=== PATIENT | male | born 1950 | race Caucasian/White ===

== ENCOUNTER 2018-05-01 14:30 | Outpatient (RCR) | payer BC, SELFPAY ==
--- NOTE | 2018-04-17 14:00 | PTTR_ITS ---
DATE: 04/17/18 SUBJECTIVE: Damion states that he seems to be doing a little bit better. He is noticing that his symptoms have changed somewhat with pain in his sit bone, and in lateral knee. He has not done any running, he is afraid this will exacerbate his symptoms. He has considered dry needling options and would like to proceed with that today. Manual therapy: ([id number]). Patient received manual mobilization of the L hip , he continues to demonstrate full PROM although with end range pain with IR. This is alleviated with inferior hip joint mobilizations, performed at end range of IR at grade 3. He also received manual stretching to the piriformis and gluteals as well as manual hamstring stretching. This is followed by cross friction massage to the hamstring attachment with good tolerance. He then received dry needling for SPRINGER services as follows: PA's L1-5 bilaterally, EDWARDS's, L cluneals, inferior gluteal and ITB, SA proximal hamstring tendon. Signed consent form can be found in scanned documents. Direct treatment time: 30 mins Total treatment time: 30 mins SS/dl
--- NOTE | 2018-04-25 15:30 | PTTR_ITS ---
DATE: 04/25/18 SUBJECTIVE: Nelson states that he felt okay after last session. He did not have any adverse affects in the dry needling, although unsure if he had any significant improvement either. He has begun biking quite regularly going about 1/2 mile to a mile stating that he does get some distal ITB pain with completion. Manual therapy: ([id number]). Patient continues to be point tender at the proximal hamstring attachment. He received cross friction massage here as well as manual stretching of the hamstrings, piriformis and ITB. He has mild tenderness to palpation through the distal ITB, received patella mobilizations with medial patella glides and joint mobilizations to the L hip at grade 3, performing mid range of flexion with both inferior and lateral joint mobs. The patient then received integrated dry needling for koo services as follows: PAs L1-5 bilaterally, HAs, L cluneals, inferior gluteal, ITB, saphenous, surreal and fibular, SA to the proximal hamstring tendon. Direct treatment time: 35 mins Total treatment time: 35 mins SS/dl
--- NOTE | 2018-05-01 15:17 | PTTR_ITS ---
DATE: 05/01/18 SUBJECTIVE: Nelson states that his ITB has been very bothersome. He increased his biking to about 3 miles which included hills. He feels this contributed to his increased symptoms. His HS tendon has been feeling pretty good, which he attributes to doing less of the things that bother it. He admits that he hasn't been terribly compliant with his HEP, stating he doesn't feel fatigued or stressed from the exercises, and subsequently isn't motivated to perform them. OBJECTIVE: Therapeutic procedures ([id number]). * x HEP review: Fully modified program as noted in scanned documents. * x Provided skilled instruction in proper exercise performance: Requires verbal and tactile cues for pelvic positioning during bridging activities. * x Provided skilled manual cues to facilitate proper muscle recruitment and/ or movement pattern: * x Other: Trunk and hip ROM are grossly WNL. Patient demonstrates SLR to 65 degrees. He received desensitization massage throughout the distal ITB with good tolerance, followed by medial patella glides. He also received non- billable dry needling to the left ITB. Direct treatment time: 30 minutes Total treatment time: 35 minutes, for completion of non-billable dry needling
== END 2018-05-05 23:59 | disposition home or self-care (01) ==
LOC: PT 14:30
PROVIDERS: PCP Family Medicine; Referring Provider Family Medicine; Visit Provider Family Medicine
DX: M70.62 Trochanteric bursitis, left hip (principal); M76.32 Iliotibial band syndrome, left leg
CPT/HCPCS: 97110; 97140

== ENCOUNTER 2018-08-07 11:32 | Outpatient (CLI) | payer BC, SELFPAY ==
--- NOTE | 2018-08-07 11:28 | DI.RAD_ITS ---
SYMPTOM/DIAGNOSIS: LT KNEE PAIN LEFT KNEE: Four views. No acute fracture or dislocation is seen. The femoral tibial joint spaces are well maintained. Mild periarticular spurring is seen at the posterior patella. There does appear to be a small suprapatellar joint effusion. The bones are normally mineralized. IMPRESSION: Mild degenerative changes seen at the patellofemoral joint.
== END 2018-08-07 11:52 ==
PROVIDERS: PCP Family Medicine; Visit Provider Physician Assistant
DX: M25.562 Pain in left knee (principal); M17.12 Unilateral primary osteoarthritis, left knee
CPT/HCPCS: 73562

== ENCOUNTER 2018-11-16 19:32 | Outpatient (REF) | payer BC, MEDICARE, SELFPAY ==
[2018-11-16 13:07] LABS: Iron 120 ug/dL (50-175)
[2018-11-16 13:13] LABS: ALT 22 U/L (12-78); AST 28 U/L (15-37); Albumin 4.2 g/dL (3.4-5.0); Alkaline Phosphatase 53 U/L (46-116); Bilirubin, Total 1.1 mg/dL (0.2-1.0); Cholesterol 183 mg/dL (50-200); HDL Cholesterol 36 mg/dL (40-60); LDL CHOLESTEROL 132 mg/dL (<100); TSH 4.16 uIU/mL (0.358-3.74); Total Protein 7.3 g/dL (6.4-8.2); Triglyceride 88 mg/dL (30-150)
[2018-11-16 13:22] LABS: Bilirubin, Direct 0.19 mg/dL (0.00-0.20)
== END 2018-11-16 19:52 ==
LOC: NCHCN 19:32
PROVIDERS: PCP Family Medicine; Visit Provider Family Medicine
DX: E03.9 Hypothyroidism, unspecified (principal); E78.6 Lipoprotein deficiency; E80.7 Disorder of bilirubin metabolism, unspecified
CPT/HCPCS: 80061; 80076; 83721; 85027; 83540; 84436; 84443

== ENCOUNTER 2018-11-17 14:33 | Outpatient (REF) | payer BC, SELFPAY ==
[2018-11-17 20:36] LABS: HCT 39.8 % (40.0-50.0); HGB 13.4 g/dL (13.5-17.5); Mean Corp. HGB Concentration 33.7 g/dL (32.0-36.0); Mean Platelet Volume 9.9 fL (8.0-11.0); Platelet Count 288 x1000/uL (130-400); RBC 4.19 m/cumm (4.50-6.00); RBC Distribution Width 13.4 % (11.8-14.1); White Blood Cell Count 6.78 k/cumm (4.4-10.8)
== END 2018-11-17 14:53 ==
LOC: NCHCN 14:33
PROVIDERS: PCP Family Medicine; Visit Provider Family Medicine
DX: E61.1 Iron deficiency (principal)
CPT/HCPCS: 85027

== ENCOUNTER 2019-01-12 02:22 | Outpatient (CLI) | payer BC, SELFPAY ==
--- NOTE | 2019-01-12 13:44 | DI.MRI_ITS ---
SYMPTOMS/DIAGNOSIS: LEFT KNEE EFFUSION, ILIOTIBIAL BAND SYNDROME, M76.32 LEFT KNEE MRI: MRI examination of the knee was performed according to the usual protocol. There is a moderate-sized knee joint effusion. There is abnormal signal in the lateral femoral condyle and also mildly abnormal signal associated with the femoral component of the lateral patellofemoral joint. There is marked thinning of the articular cartilage of the patellofemoral joint laterally and to a lesser degree medially. There is mild lateral patellar subluxation. Otherwise, extensor mechanism appears intact. Articular cartilage of the tibiofemoral joints appears mildly thinned, both medially and laterally. No cruciate ligament tear seen. No meniscal tear seen. No evidence of collateral ligament injury. CONCLUSION: Degenerative changes, most prominent involving patellofemoral joint, particularly laterally where there is severe articular cartilage loss with associated subchondral bony signal change. No evidence of internal derangement.
== END 2019-01-12 02:42 ==
PROVIDERS: PCP Family Medicine; Visit Provider Student in an Organized Health Care Education/Training Program
DX: M76.32 Iliotibial band syndrome, left leg (principal); M25.462 Effusion, left knee; M17.12 Unilateral primary osteoarthritis, left knee
CPT/HCPCS: 73721

== ENCOUNTER 2019-01-17 09:23 | Outpatient (REF) | payer BC, SELFPAY ==
[2019-01-17 14:39] LABS: TSH (W/Ref FT4) 1.51 uIU/mL (0.358-3.74)
== END 2019-01-17 09:43 ==
LOC: NCHCN 09:23
PROVIDERS: PCP Family Medicine; Visit Provider Family Medicine
DX: E03.9 Hypothyroidism, unspecified (principal)
CPT/HCPCS: 84443

== ENCOUNTER 2020-01-09 02:01 | Outpatient (CLI) | payer BC, SELFPAY ==
[2020-01-09 10:49] LABS: ALT 29 U/L (16-63); AST 24 U/L (15-37); Alkaline Phosphatase 58 U/L (46-116); Bilirubin, Direct 0.18 mg/dL (0.00-0.20); Bilirubin, Total 0.9 mg/dL (0.2-1.0); Lipase 278 U/L (73-393); Total Protein 7.1 g/dL (6.4-8.2)
== END 2020-01-09 02:21 ==
PROVIDERS: PCP Family Medicine; Visit Provider Family Medicine
DX: R10.13 Epigastric pain (principal)
CPT/HCPCS: 36415; 80076; 83690

== ENCOUNTER 2020-01-10 01:52 | Outpatient (CLI) | payer BC, SELFPAY ==
--- NOTE | 2020-01-10 | DI.US_ITS ---
CLINICAL HISTORY: EPIGASTRIC PAIN, R10.13, ? GB DISEASE. TECHNIQUE: Ultrasound abdomen performed using standard protocol. COMPARISON: No exams were available for comparison FINDINGS: LIVER: Normal size. Mildly increased echogenicity.. No focal liver lesions are seen.. GALLBLADDER: No evidence of cholelithiasis. No evidence of wall thickening. No pericholecystic fluid identified. KIDNEYS: Kidneys are symmetric in size. No evidence of renal calculi. No evidence of hydronephrosis. No renal mass identified. Small bilateral renal cysts are noted. BILIARY SYSTEM: No intrahepatic or extrahepatic biliary ductal dilation. FRYE'S SIGN: Negative. PANCREAS: Normal where visualized. SPLEEN: Not enlarged. Scattered calcifications consistent with calcified granulomas. ABDOMINAL AORTA AND IVC: Visualized portions normal caliber. ASCITES: None seen. IMPRESSION: Mild hepatic steatosis. No acute abnormality.. DATA REPOSITORY:
== END 2020-01-10 02:12 ==
PROVIDERS: PCP Family Medicine; Visit Provider Family Medicine
DX: R10.13 Epigastric pain (principal); N28.1 Cyst of kidney, acquired; K76.0 Fatty (change of) liver, not elsewhere classified
CPT/HCPCS: 76700

== ENCOUNTER 2020-02-14 02:33 | Outpatient (CLI) | payer BC, SELFPAY ==
[2020-02-14 08:42] LABS: Abs Immature Grans 0.01 k/cumm (0.0-0.09); Absolute Basophil Count 0.02 k/cumm (0.0-0.2); Absolute Eosinophil Count 0.24 k/cumm (0.0-0.7); Absolute Lymphocyte Count 1.62 k/cumm (1.2-3.4); Absolute Monocyte Count 0.58 k/cumm (0.11-0.7); Absolute Neutrophil Count 2.86 k/cumm (1.2-6.7); Basophils % 0.4; Eosinophils % 4.5; HCT 39.1 % (40.0-50.0); HGB 13.4 g/dL (13.5-17.5); Immature Grans % 0.2 %; Lymphocytes % 30.4; Mean Corp. HGB Concentration 34.3 g/dL (32.0-36.0); Mean Corpuscular Hemoglobin 31.8 pg (27.0-33.0); Mean Corpuscular Volume 92.7 fL (80-95); Mean Platelet Volume 8.9 fL (8.0-11.0); Monocytes % 10.9; Neutrophils % 53.6; Platelet Count 299 x1000/uL (130-400); RBC 4.22 m/cumm (4.50-6.00); White Blood Cell Count 5.33 k/cumm (4.4-10.8)
[2020-02-14 09:23] LABS: Iron 114 ug/dL (65-175); Total Iron Binding Capacity 226 ug/dL (250-450); Transferrin Sat 50 % (20-55)
[2020-02-14 09:34] LABS: ALT 25 U/L (16-63); AST 25 U/L (15-37); Albumin 4.1 g/dL (3.4-5.0); Alkaline Phosphatase 62 U/L (46-116); Anion Gap 6.3 mmol/L (3-11); BUN 19 mg/dL (7-18); Bilirubin, Total 1.1 mg/dL (0.2-1.0); CO2 30.7 mmol/L (21.0-32.0); CREATININE 0.96 mg/dL (0.70-1.30); Calculated LDL 87 mg/dL (<100); Chloride 107 mmol/L (98-107); Cholesterol 136 mg/dL (<200); Ferritin 325 ng/mL (26-388); Glucose 92 mg/dL (74-106); HDL Cholesterol 33 mg/dL (40-60); Potassium 3.7 mmol/L (3.5-5.1); Sodium 144 mmol/L (136-145); Total Protein 7.2 g/dL (6.4-8.2); Triglyceride 84 mg/dL (<150)
[2020-02-15 09:58] LABS: PSA, Screening 0.9 ng/mL (0.0-4.5)
[2020-02-15 10:56] LABS: IgA 219 mg/dL (85-499)
[2020-02-18 13:23] LABS: IgA 219 mg/dL (85-499); Tissue Transglutaminase IgA <1.2 U/mL (<4.0)
[2020-02-18 22:26] LABS: Tissue Transglutaminase Ab IgA <1.2 U/mL; Tissue Transglutaminase Ab IgG 4.9 U/mL
== END 2020-02-14 02:53 ==
PROVIDERS: PCP Family Medicine; Visit Provider Family Medicine
DX: E03.9 Hypothyroidism, unspecified (principal); R10.13 Epigastric pain; E78.6 Lipoprotein deficiency; D50.9 Iron deficiency anemia, unspecified
CPT/HCPCS: 36415; 80053; 80061; 82784; 83516; 84153; 82728; 83540; 83550; 85025

== ENCOUNTER 2020-03-12 13:06 | Outpatient (REF) | payer BC, SELFPAY ==
[2020-03-12 22:07] LABS: TSH (W/Ref FT4) 0.93 uIU/mL (0.36-3.74)
== END 2020-03-12 13:26 ==
LOC: NCHCN 13:06
PROVIDERS: PCP Family Medicine; Visit Provider Family Medicine
DX: E03.9 Hypothyroidism, unspecified (principal)
CPT/HCPCS: 84443

== ENCOUNTER 2020-04-25 00:52 | Outpatient (CLI) | payer BC, SELFPAY | END 2020-04-25 01:12 | PROVIDERS: PCP Family Medicine; Visit Provider Family Medicine | DX: R00.2 Palpitations (principal); R10.13 Epigastric pain | CPT/HCPCS: 93270 ==

== ENCOUNTER 2020-05-09 04:03 | Outpatient (CLI) | payer BC, SELFPAY ==
--- NOTE | 2020-05-09 | DI.US_ITS ---
APPROVED REPORT EXAM: Comprehensive 2D, Doppler, and color-flow Echocardiogram Patient Location: Out-Patient Vibrator Operator: Apurva Shen RDCS (AE) Indications: Palpitations, Epigastric pain Other Information Study Quality: Good Conclusion Normal left ventricular wall thickness and chamber size. Estimated ejection fraction is 55 to 60%. There are no segmental wall motion abnormalities Normal right ventricular size and systolic function The left atrium and right atrium are normal in size Aortic valve is trileaflet and mildly sclerotic with trace regurgitation. No aortic stenosis Normal mitral, tricuspid, and pulmonic valves There is trace mitral regurgitation, trace to mild tricuspid regurgitation Normal estimated right ventricular systolic pressure Mildly dilated ascending aorta measuring 3.77 cm Wall motion Left Ventricle The left ventricle is normal size. The left ventricular systolic function is normal. The left ventric ular ejection fraction is within the normal range. There is normal left ventricular wall thickness. T here is normal LV segmental wall motion. There is no ventricular septal defect visualized. LVEF is 55 -60%. Right Ventricle The right ventricle is normal size. The right ventricular systolic function is normal. The RVSP is 25 .0mmHg. Atria The left atrium size is normal. The right atrium size is normal. The interatrial septum is intact wit h no evidence for an atrial septal defect. Aortic Valve The Aortic valve is sclerotic. Aortic valve is trileaflet. There is no aortic valvular stenosis. Trac e aortic regurgitation. Mitral Valve The mitral valve is normal in structure. No evidence of mitral valve stenosis. Trace mitral regurgita tion. Tricuspid Valve The tricuspid valve is normal in structure. There is no tricuspid valve stenosis. Trace to mild tricu spid regurgitation. Pulmonic Valve The pulmonary valve is normal in structure. There is no pulmonic valvular stenosis. There is no pulmo seun valvular regurgitation. Great Vessels The aortic root is normal in size. The ascending aorta is mildly dilated.3.77 cm Aortic arch is lance l in caliber. IVC is normal in size and collapses >50% with inspiration. Pericardium There is no pericardial effusion. 2D Dimensions IVSD d PLAX 0.91 cm M: 0.6-1.2 LV Vol A2C d MOD 85.4 mL LVPW d PLAX 0.90 cm M: 0.6 - 1.2 LV Vol A4C d MOD 92.3 mL LVID d PLAX 4.93 cm M: 4.2 - 5.8 LA vol/ BSA A2C s A-L 22.0 mL/m2 LVDs 3.25 cm M: 2.5 - 4.0 LA vol/ BSA A4C s A-L 25.6 mL/m2 Ao Root d 3.06 cm M: 3.1 - 3.7 LA Vol/ BSA Biplane s A-L 27.8 mL/m2 RA Area A4C 14.72 cm2 LA Area A4C s MOD 17.23 cm2 RA Vol/ BSA A4C s A-L 20.0 mL/m2 LA Area A2C s MOD 13.63 cm2 Ao Asc Diam d 3.77 cm M: 2.6 - 3.4 LV EF A4C MOD 55.1 % LV EF Teichholz 61.5 % LV EF A2C MOD 55.6 % LVEF (Viveros's) 55.41 % M: 52 - 72 LV EF Biplane MOD 55.4 % LV Volume 70.34 mL M: 62 - 150 SV 49.20 mL LV Volume Index 41.13 mL/m2 M: 34 - 74 SV Index 28.75 mL/m2 LV Vol Biplane MOD 88.8 mL FS 33.05 % M-Mode TAPSE 2.11 cm (M/F) >1.7 LV Diastology MV E' medial 0.071 (>0.07 m/s) E/A Ratio 1.0 LV E/e MED 5.85 (<14) MV E Vmax 0.42 (0.4-1.3 m/s) MV E' lateral 0.103 (>0.1 m/s) MV A Vmax 0.40 (0.4-1.3 m/s) LV E/e LAT 4.05 (<14) MV E/A Ratio 1.03 MV E/E' medial 5.89 MV E/E' lateral 4.07 Aortic Valve LVOT Area 2.87 cm2 AoV Area Vmax 2.10 cm2 LVOT Vmax 0.99 m/s AoV Area/ BSA (Vmax) 1.23 cm2/m2 LVOT Mean Eliseo. 0.63 m/s RAUL Mean Eliseo. 1.88 cm2 LVOT Peak Grad 4.0 mmHg RAUL Mean Eliseo. Index 1.10 cm2/m2 LVOT Mean Grad 1.9 mmHg AR DT 3757 msec LVOT VTI 0.195 m AR PHT 1089 msec LVOT Diam s 1.90 cm AoV Vmax 1.36 m/s Velocity Ratio 0.72 AoV Mean Eliseo. 0.97 m/s AoV Peak Grad 7.4 mmHg LVOT SV 55.84 mL AoV Mean Grad 4.2 mmHg AoV VTI 0.269 m AoV Area VTI 2.08 cm2 AoV Area/ BSA (VTI) 1.21 cm/m2 Mitral Valve MV DT 298 (160-240 msec) MV PHT 87 msec MV Area PHT 2.54 cm2 Pulmonary Valve PV Vmax 0.76 (0.5-1.5 m/s) RVOT Peak Gr. 1.30 mmHg PV Peak Grad 2.3 mmHg RVOT Mean Gr. 0.65 mmHg PV Mean Grad 1.3 mmHg RVOT VTI 0.122 m PV VTI 0.169 m RVOT Vmax 0.57 m/s Tricuspid Valve TR Peak Grad 22.0 mmHg TR Vmax 2.35 m/s
--- NOTE | 2020-05-26 15:22 | W.CARDEVENT ---
Date of service: 05/26/20 Time of Service: 15:22 Cardiac Event Recorder Referring Provider:: Latosha Indications:: Palps Cardiac Event Note: This is a 30-day event recorder ordered for indication of palpitations. ?The patient was in normal sinus rhythm for the majority recording with an average heart rate of 72 bpm. ?There were 14 total triggered events of which 11 of them were triggered by the patient. ?All triggered events were either sinus rhythm or sinus tachycardia. ?There were no episodes of ventricular tachycardia or supraventricular tachycardia, no episodes of atrial fibrillation and no pauses grade 3 seconds.
== END 2020-05-09 04:23 ==
PROVIDERS: PCP Family Medicine; Visit Provider Family Medicine
DX: I07.1 Rheumatic tricuspid insufficiency (principal)
CPT/HCPCS: 93306

== ENCOUNTER 2021-03-31 14:42 | Outpatient (REF) | payer BC, SELFPAY ==
[2021-03-31 13:57] LABS: ALT 36 U/L (16-63); AST 32 U/L (15-37); Albumin 4.2 g/dL (3.4-5.0); Alkaline Phosphatase 52 U/L (46-116); Anion Gap 6.4 mmol/L (3-11); BUN 23 mg/dL (7-18); Bilirubin, Total 1.3 mg/dL (0.2-1.0); CO2 31.6 mmol/L (21.0-32.0); CREATININE 1.2 mg/dL (0.70-1.30); Calcium 9.6 mg/dL (8.5-10.1); Calculated LDL 99 mg/dL (<100); Chloride 105 mmol/L (98-107); Cholesterol 147 mg/dL (<200); Glucose 85 mg/dL (74-106); HDL Cholesterol 36 mg/dL (40-60); Potassium 5.4 mmol/L (3.5-5.1); Sodium 143 mmol/L (136-145); Total Protein 7.2 g/dL (6.4-8.2); Triglyceride 63 mg/dL (<150)
== END 2021-03-31 14:43 | disposition home or self-care (01) ==
LOC: NCHCN 14:42
PROVIDERS: PCP Family Medicine; Visit Provider Family Medicine
DX: Z00.00 Encounter for general adult medical examination without abnormal findings (principal); R00.2 Palpitations; R17 Unspecified jaundice; E78.6 Lipoprotein deficiency; E03.9 Hypothyroidism, unspecified
CPT/HCPCS: 80053; 80061; 84443

== ENCOUNTER 2022-05-07 09:11 | Outpatient (REF) | payer BC, SELFPAY ==
[2022-05-07 18:41] LABS: HCT 40.1 % (40.0-50.0); HGB 13.6 g/dL (13.5-17.5); MCH 31.9 pg (27.0-33.0); MCHC 33.9 % (32.0-36.0); MCV 94 fL (80-95); MPV 10.4 fL (8.0-11.0); Platelet Count 225 10^3/uL (130-400); RBC 4.27 10^6/uL (4.36-5.78); RDW 13.3 % (11.8-14.1); RDW-SD 45.9 fL; WBC 5.22 10^3/uL (4.4-10.8)
[2022-05-07 19:13] LABS: ALT 30 U/L (16-63); AST 28 U/L (15-37); Albumin 4.3 g/dL (3.4-5.0); Alkaline Phosphatase 45 U/L (46-116); Anion Gap 3.8 mmol/L (3-11); BUN 19 mg/dL (7-18); Bilirubin, Total 1.4 mg/dL (0.2-1.0); CO2 36.2 mmol/L (21.0-32.0); CREATININE 0.9 mg/dL (0.70-1.30); Calcium 9.3 mg/dL (8.5-10.1); Calculated LDL 99 mg/dL (<100); Chloride 104 mmol/L (98-107); Cholesterol 156 mg/dL (<200); Estimated GFR 92.45 (mL/min/1.73m2); Glucose 91 mg/dL (74-106); HDL Cholesterol 41 mg/dL (40-60); Potassium 4.8 mmol/L (3.5-5.1); Sodium 144 mmol/L (136-145); TSH (W/Ref FT4) 1.51 uIU/mL (0.36-3.74); Total Protein 7.4 g/dL (6.4-8.2); Triglyceride 83 mg/dL (<150)
== END 2022-05-07 09:12 | disposition home or self-care (01) ==
LOC: NCHCN 09:11
PROVIDERS: PCP Family Medicine; Visit Provider Family Medicine
DX: E03.9 Hypothyroidism, unspecified; Z00.00 Encounter for general adult medical examination without abnormal findings; E80.7 Disorder of bilirubin metabolism, unspecified
CPT/HCPCS: 80053; 80061; 85027; 84443

== ENCOUNTER 2022-09-24 10:30 | Outpatient (CLI) | payer BC, SELFPAY ==
--- NOTE | 2022-09-24 09:58 | DI.RAD_ITS ---
Exam(s) XR KNEE LT 4V AP,LAT,HYUN,PAT EXAM: XR KNEE LT 4V AP,LAT,HYUN,PAT CLINICAL HISTORY: L knee pain. TECHNIQUE: 2D digital imaging was performed of the left knee. Four images were obtained. Merchant, AP, lateral and PA tunnel views were obtained. COMPARISON: CR XR knee LT 3V AP,lat,hyun from 08/07/2018 FINDINGS: BONES: No acute fracture is present. No bony destructive lesion is seen. JOINTS: The knee is normally aligned. No joint effusion is seen. There is joint space narrowing and p eriarticular spurring at the patellofemoral joint. SOFT TISSUE: Normal. IMPRESSION: Osteoarthritis of the knee. DATA REPOSITORY: RADIATION DOSE DELIVERED:
== END 2022-09-24 10:31 | disposition home or self-care (01) ==
LOC: DIORS 10:30
PROVIDERS: PCP Family Medicine; Referring Provider Family Medicine; Visit Provider Physician Assistant
DX: M17.12 Unilateral primary osteoarthritis, left knee (principal)
CPT/HCPCS: 73564

== ENCOUNTER 2023-05-10 17:26 | Outpatient (REF) | payer BC, SELFPAY ==
[2023-05-10 18:21] LABS: ALT 27 U/L (16-63); AST 27 U/L (15-37); Albumin 4.2 g/dL (3.4-5.0); Alkaline Phosphatase 51 U/L (46-116); Anion Gap 5.1 mmol/L (3-11); BUN 21 mg/dL (7-18); CO2 31.9 mmol/L (21.0-32.0); CREATININE 0.9 mg/dL (0.70-1.30); Calcium 9.5 mg/dL (8.5-10.1); Calculated LDL 109 mg/dL (<100); Chloride 104 mmol/L (98-107); Cholesterol 160 mg/dL (<200); Estimated GFR 91.88 (mL/min/1.73m2); Glucose 86 mg/dL (74-106); HDL Cholesterol 39 mg/dL (40-60); Potassium 5.5 mmol/L (3.5-5.1); Sodium 141 mmol/L (136-145); Total Protein 7.4 g/dL (6.4-8.2); Triglyceride 63 mg/dL (<150)
== END 2023-05-10 17:27 | disposition home or self-care (01) ==
LOC: NCHCN 17:26
PROVIDERS: PCP Family Medicine; Visit Provider Family Medicine
DX: Z00.00 Encounter for general adult medical examination without abnormal findings (principal); I10 Essential (primary) hypertension; E78.6 Lipoprotein deficiency; E80.6 Other disorders of bilirubin metabolism
CPT/HCPCS: 80053; 80061

== ENCOUNTER 2023-05-17 09:10 | Outpatient (REF) | payer BC, SELFPAY ==
[2023-05-16 22:29] LABS: Anion Gap 5.9 mmol/L (3-11); BUN 22 mg/dL (7-18); CO2 30.1 mmol/L (21.0-32.0); CREATININE 0.8 mg/dL (0.70-1.30); Chloride 103 mmol/L (98-107); Estimated GFR 95.21 (mL/min/1.73m2); Glucose 88 mg/dL (74-106); Potassium 4.3 mmol/L (3.5-5.1); Sodium 139 mmol/L (136-145); TSH (W/Ref FT4) 1.43 uIU/mL (0.36-3.74)
== END 2023-05-17 09:11 | disposition home or self-care (01) ==
LOC: NCHCN 09:10
PROVIDERS: PCP Family Medicine; Visit Provider Family Medicine
DX: E03.9 Hypothyroidism, unspecified (principal)
CPT/HCPCS: 80048; 84443

== ENCOUNTER 2024-03-28 14:14 | Outpatient (REF) | payer BC, SELFPAY ==
[2024-03-28 14:52] LABS: Abs Immature Grans 0.03 10^3/uL (0.0-0.06); Absolute Basophil Count 0.04 10^3/uL (0.0-0.2); Absolute Eosinophil Count 0.33 10^3/uL (0.0-0.7); Absolute Lymphocyte Count 2.74 10^3/uL (1.2-3.4); Absolute Monocyte Count 0.67 10^3/uL (0.1-0.8); Absolute Neutrophil Count 3.29 10^3/uL (1.2-6.7); Basophils % 0.6 %; Eosinophils % 4.6 %; HCT 39.1 % (40.0-50.0); HGB 12.9 g/dL (13.5-17.5); Immature Grans % 0.4 %; Lymphocytes % 38.6 %; MCH 31.8 pg (27.0-33.0); MCV 96 fL (80-95); MPV 9.7 fL (8.0-11.0); Monocytes % 9.4 %; Neutrophils % 46.4 %; Platelet Count 238 10^3/uL (130-400); RBC 4.06 10^6/uL (4.36-5.78); RDW 14.3 % (11.8-14.1); RDW-SD 50.9 fL
[2024-03-28 15:21] LABS: C-Reactive Protein < 0.50 mg/dL (<or=0.5)
[2024-03-29 10:35] LABS: Lyme Ab w Rflx to Lyme Confirm Negative (Negative)
[2024-03-30 22:42] LABS: Anaplasma phagocytophilum Negative (Negative); B. miyamotoi PCR Negative (Negative); Babesia divergens/MO-1 Negative (Negative); Babesia duncani Negative (Negative); Babesia microti Negative (Negative); Ehrlichia chaffeensis Negative (Negative); Ehrlichia ewingii/canis Negative (Negative); Ehrlichia muris eauclairensis Negative (Negative)
== END 2024-03-28 14:15 | disposition home or self-care (01) ==
LOC: NCHCN 14:14
PROVIDERS: PCP Family Medicine; Visit Provider Family Medicine
DX: M79.661 Pain in right lower leg (principal)
CPT/HCPCS: 87798; 85025; 86140; 86618

== ENCOUNTER 2024-05-11 16:43 | Outpatient (CLI) | payer BC, SELFPAY ==
[2024-05-11 16:47] LABS: Abs Immature Grans 0.01 10^3/uL (0.0-0.06); Absolute Basophil Count 0.04 10^3/uL (0.0-0.2); Absolute Eosinophil Count 0.39 10^3/uL (0.0-0.7); Absolute Lymphocyte Count 2.51 10^3/uL (1.2-3.4); Absolute Monocyte Count 0.73 10^3/uL (0.1-0.8); Absolute Neutrophil Count 1.93 10^3/uL (1.2-6.7); Basophils % 0.7 %; HCT 36.7 % (40.0-50.0); HGB 12.4 g/dL (13.5-17.5); Immature Grans % 0.2 %; Lymphocytes % 44.7 %; MCH 31.7 pg (27.0-33.0); MCHC 33.8 % (32.0-36.0); MCV 94 fL (80-95); MPV 8.8 fL (8.0-11.0); Neutrophils % 34.4 %; Platelet Count 223 10^3/uL (130-400); RBC 3.91 10^6/uL (4.36-5.78); RDW 13.5 % (11.8-14.1); RDW-SD 46.2 fL; WBC 5.61 10^3/uL (4.4-10.8)
[2024-05-11 17:31] LABS: Anion Gap 7.3 mmol/L (3-11); BUN 24 mg/dL (7-18); CO2 30.7 mmol/L (21.0-32.0); Calcium 9.2 mg/dL (8.5-10.1); Calculated LDL 92 mg/dL (<100); Chloride 105 mmol/L (98-107); Cholesterol 152 mg/dL (<200); Estimated GFR 80.47 (mL/min/1.73m2); Glucose 100 mg/dL (74-106); HDL Cholesterol 40 mg/dL (40-60); Potassium 4.1 mmol/L (3.5-5.1); Sodium 143 mmol/L (136-145); TSH 1.07 uIU/Ml (0.36-3.74); Triglyceride 100 mg/dL (<150); Vitamin D 25 Total 28.4 ng/mL (30-100)
[2024-05-11 17:53] LABS: FREE T4 0.96 ng/dL (0.76-1.46)
[2024-05-12 04:15] LABS: ALT 23 U/L (16-63); AST 27 U/L (15-37); Albumin 3.8 g/dL (3.4-5.0); Alkaline Phosphatase 57 U/L (46-116); Bilirubin, Total 0.61 mg/dL (0.2-1.0)
== END 2024-05-11 16:44 | disposition home or self-care (01) ==
LOC: LBO 16:46
PROVIDERS: PCP Family Medicine; Visit Provider Family Medicine
DX: Z00.00 Encounter for general adult medical examination without abnormal findings (principal); D64.9 Anemia, unspecified
CPT/HCPCS: 36415; 80048; 80061; 82306; 82040; 82247; 84075; 84155; 84439; 84443; 84450; 84460; 85025

== ENCOUNTER 2024-07-04 19:45 | Outpatient (REF) | payer BC, SELFPAY ==
[2024-07-08 10:51] LABS: Fecal Immunochemical Test Negative (Negative)
== END 2024-07-04 19:46 | disposition home or self-care (01) ==
LOC: LBN 19:45
PROVIDERS: PCP Family Medicine; Visit Provider Surgery
DX: D50.9 Iron deficiency anemia, unspecified (principal)
CPT/HCPCS: 82274

== ENCOUNTER 2025-06-25 15:26 | Outpatient (CLI) | payer BC, SELFPAY ==
[2025-06-25 15:55] LABS: HCT 36.0 % (40.0-50.0); HGB 12.1 g/dL (13.5-17.5); MCH 31.4 pg (27.0-33.0); MCHC 33.6 % (32.0-36.0); MCV 94 fL (80-95); MPV 8.9 fL (8.0-11.0); Platelet Count 226 10^3/uL (130-400); RBC 3.85 10^6/uL (4.36-5.78); RDW 13.8 % (11.8-14.1); RDW-SD 47.8 fL; WBC 6.08 10^3/uL (4.4-10.8)
[2025-06-25 17:42] LABS: ALT 26 U/L (16-63); AST 23 U/L (15-37); Albumin 3.9 g/dL (3.4-5.0); Alkaline Phosphatase 58 U/L (46-116); Anion Gap 6.4 mmol/L (3-11); BUN 22 mg/dL (7-18); Bilirubin, Total 0.5 mg/dL (0.2-1.0); CO2 32.6 mmol/L (21.0-32.0); Calcium 9.0 mg/dL (8.5-10.1); Chloride 104 mmol/L (98-107); Estimated GFR 90.74 (mL/min/1.73m2); Glucose 97 mg/dL (74-106); Potassium 3.6 mmol/L (3.5-5.1); Sodium 143 mmol/L (136-145); TSH (W/Ref FT4) 1.98 uIU/mL (0.36-3.74); Total Protein 7.1 g/dL (6.4-8.2)
[2025-06-26 18:13] LABS: PSA, Screening 1.5 ng/mL (<=6.5)
== END 2025-06-25 15:27 | disposition home or self-care (01) ==
LOC: LBO 15:27
PROVIDERS: PCP Family Medicine; Visit Provider Family Medicine
DX: Z12.5 Encounter for screening for malignant neoplasm of prostate (principal); E03.9 Hypothyroidism, unspecified; I10 Essential (primary) hypertension; D64.9 Anemia, unspecified
CPT/HCPCS: 36415; 80053; 84153; 85027; 84443

== ENCOUNTER 2025-07-04 05:57 | Day surgery (SDC) | payer BC, SELFPAY ==
[2025-07-04 06:20] VITALS: BP 134/82; PULSE 56; RESP 16; TEMP 36.4; O2SAT 100
[2025-07-04] MEDS: Lactated Ringers 1,000 ML 80 ML IV (06:45)
--- NOTE | 2025-07-04 06:58 | W.ANESPRE ---
General Info Date of Service Date Performed: 07/04/25 Height: 5 ft 7 in Weight: 64 kg Body Mass Index (BMI): 22.1 Surgical Procedure: Operation Date: 07/04/25 07:35 Proposed Procedure Side Surgeon annie Sprague MD Meds Allergies and Home Medications Allergies Allergy/AdvReac Type Severity Reaction Status Date / Time No Known Allergies Allergy Verified 07/04/25 06:37 Home Medication Medication Instructions Recorded ferrous sulfate 325 mg (65 mg 325 mg PO DAILY 05/12/17 iron) tablet (Iron (ferrous sulfate)) levothyroxine 75 mcg tablet 75 mcg PO DAILY 05/12/17 losartan 50 mg tablet 50 mg PO DAILY 06/28/24 famotidine 20 mg tablet (Pepcid) 20 mg PO DAILY 06/05/25 iron-vitamin B complex tablet 1 tab PO DAILY 06/05/25 omeprazole 20 mg capsule,delayed 20 mg PO DAILY 06/05/25 release bisacodyl 5 mg tablet,delayed 5 mg PO ONCE #4 tabs 06/27/25 release (Dulcolax (bisacodyl)) polyethylene glycol 3350 17 17 g PO ONCE #238 grams 06/27/25 gram/dose oral powder Current Visit Medications: Current Medications Generic Name Dose Route Start Last Admin Trade Name Freq PRN Reason Stop Dose Admin Ringer's Solution 1,000 mls @ 80 mls/hr 07/04/25 06:00 07/04/25 06:45 IV 07/04/25 23:59 80 mls/hr INFUSION CASSI Administration IV Miscellaneous Supplies 1 each 07/04/25 06:00 Iv Access IV 07/04/25 23:59 DIRECTED CASSI Sodium Biphosphate/Sodium Phosphate 133 ml 07/04/25 06:00 Na Phosphate Enema-Adult 133 Ml Btl IN 07/04/25 23:59 DIRECTED PRN Sodium Chloride 0 ml 07/04/25 06:00 Normal Saline Flush 10 Ml Syr IV 07/04/25 23:59 PRN PRN Sodium Chloride 0 ml 07/04/25 06:00 Normal Saline 10 Ml Vial IJ 07/04/25 23:59 DIRECTED PRN Sterile Water 0 ml 07/04/25 06:00 Water,Injection,Sterile 10 Ml Vial IJ 07/04/25 23:59 DIRECTED PRN PFSH Active Problems Active Problems: Problem Status Onset Code Microcytic anemia Acute D50.9 Osteoarthritis of left patellofemoral joint Acute M17.12 Iliotibial band syndrome of left side Chronic M76.32 Medical History Medical History Lipoprotein deficiency disorder Tick bite Hyperkalemia Anemia Essential hypertension Hypothyroid GERD (gastroesophageal reflux disease) Surgical History Surgical History Hx of vasectomy History of esophagogastroduodenoscopy (EGD) (~09/16/23) with balloon dilation History of Lisandro fundoplication Colonoscopy - IV Sedation (05/27/17) Tobacco Smoking/Tobacco Use Status: Never Alcohol Alcohol Intake: current Alcohol intake frequency: holidays/special occasions only Substance Use Substance use: Never Substance use type: does not use Vital Signs and Lab Results Vital Signs Most Recent Vital Signs in EMR: Most Recent Vital Signs Temp Pulse Resp BP Pulse Ox 36.4 C L 56 L 16 134/82 100 07/04/25 06:20 07/04/25 06:20 07/04/25 06:20 07/04/25 06:20 07/04/25 06:20 Lab Results Complete Blood Count: WBC, (4.4-10.8) 6.08 10^3/uL 06/25/25, 15:33 RBC, (4.36-5.78) 3.85 10^6/uL L 06/25/25, 15:33 Hgb, (13.5-17.5) 12.1 g/dL L 06/25/25, 15:33 Hct, (40.0-50.0) 36.0 % L 06/25/25, 15:33 Plt Count, (130-400) 226 10^3/uL 06/25/25, 15:33 Complete Metabolic Panel: Sodium, (136-145) 143 mmol/L 06/25/25, 15:33 Potassium, (3.5-5.1) 3.6 mmol/L 06/25/25, 15:33 Chloride, (98-107) 104 mmol/L 06/25/25, 15:33 Carbon Dioxide, (21.0-32.0) 32.6 mmol/L H 06/25/25, 15:33 BUN, (7-18) 22 mg/dL H 06/25/25, 15:33 Creatinine, (0.70-1.30) 0.9 mg/dL 06/25/25, 15:33 Est GFR (CKD-EPI 2020), (mL/min/1.73m2) 90.74 06/25/25, 15:33 Calcium, (8.5-10.1) 9.0 mg/dL 06/25/25, 15:33 Albumin, (3.4-5.0) 3.9 g/dL 06/25/25, 15:33 Glucose, (74-106) 97 mg/dL 06/25/25, 15:33 Liver Function Panel: ALT, (16-63) 26 U/L 06/25/25, 15:33 AST, (15-37) 23 U/L 06/25/25, 15:33 Thyroid Panel: TSH, (0.36-3.74) 1.98 uIU/mL 06/25/25, 15:33 Imaging and Studies Imaging and Studies Study information below may be from another EMR and interpreted by another provider. Please see original notes in EMR for more complete details. Echocardiogram Summary: Patient Name: SARA SERRANO Unit #: [id number] Loc: Ordering Provider: Charley Curtis Status: REG I Primary Care Provider: Charley Curtis Date of Exam: 05/09/20 Sex: M Admission Date: 05/09/20 : 1950 Age: 69 Exam(s) a US:US echocardiogram APPROVED REPORT EXAM: Comprehensive 2D, Doppler, and color-flow Echocardiogram Patient Location: Out-Patient Crane Assembler: Apurva Shen RDCS (AE) Indications: Palpitations, Epigastric pain Other Information Study Quality: Good Conclusion Normal left ventricular wall thickness and chamber size. Estimated ejection fraction is 55 to 60%. There are no segmental wall motion abnormalities Normal right ventricular size and systolic function The left atrium and right atrium are normal in size Aortic valve is trileaflet and mildly sclerotic with trace regurgitation. No aortic stenosis Normal mitral, tricuspid, and pulmonic valves There is trace mitral regurgitation, trace to mild tricuspid regurgitation Normal estimated right ventricular systolic pressure Mildly dilated ascending aorta measuring 3.77 cm Wall motion Left Ventricle The left ventricle is normal size. The left ventricular systolic function is normal. The left ventricular ejection fraction is within the normal range. There is normal left ventricular wall thickness. There is normal LV segmental wall motion. There is no ventricular septal defect visualized. LVEF is 55-60%. Right Ventricle The right ventricle is normal size. The right ventricular systolic function is normal. The RVSP is 25.0mmHg. Atria The left atrium size is normal. The right atrium size is normal. The interatrial septum is intact with no evidence for an atrial septal defect. Aortic Valve The Aortic valve is sclerotic. Aortic valve is trileaflet. There is no aortic valvular stenosis. Trace aortic regurgitation. Mitral Valve The mitral valve is normal in structure. No evidence of mitral valve stenosis. Trace mitral regurgitation. Tricuspid Valve The tricuspid valve is normal in structure. There is no tricuspid valve stenosis. Trace to mild tricuspid regurgitation. Pulmonic Valve The pulmonary valve is normal in structure. There is no pulmonic valvular stenosis. There is no pulmonic valvular regurgitation. Great Vessels The aortic root is normal in size. The ascending aorta is mildly dilated.3.77 cm Aortic arch is normal in caliber. IVC is normal in size and collapses >50% with inspiration. Pericardium There is no pericardial effusion. 2D Dimensions IVSD d PLAX 0.91 cm M: 0.6-1.2LV Vol A2C d MOD 85.4 mL LVPW d PLAX 0.90 cm M: 0.6 - 1.2LV Vol A4C d MOD 92.3 mL LVID d PLAX 4.93 cm M: 4.2 - 5.8LA vol/ BSA A2C s A-L22.0 mL/m2 LVDs 3.25 cm M: 2.5 - 4.0LA vol/ BSA A4C s A-L25.6 mL/m2 Ao Root d 3.06 cm M: 3.1 - 3.7LA Vol/ BSA Biplane s A-L 27.8 mL/m2 RA Area A4C14.72 cm2LA Area A4C s MOD 17.23 cm2 RA Vol/ BSA A4C s A-L 20.0 mL/m2LA Area A2C s MOD 13.63 cm2 Ao Asc Diam d 3.77 cm M: 2.6 - 3.4LV EF A4C MOD 55.1 % LV EF Teichholz 61.5 %LV EF A2C MOD 55.6 % LVEF (Viveros's)55.41 % M: 52 - 72LV EF Biplane MOD 55.4 % LV Eqzjhs96.34 mL M: 62 - 566IB14.20 mL LV Volume Index41.13 mL/m2 M: 34 - 74SV Index28.75 mL/m2 LV Vol Biplane MOD 88.8 mL FS33.05 % M-Mode TAPSE 2.11 cm (M/F) >1.7 LV Diastology MV E' medial0.071 (>0.07 m/s)E/A Ratio 1.0 LV E/e MED5.85 (<14)MV E Vmax 0.42 (0.4-1.3 m/s) MV E' lateral0.103 (>0.1 m/s)MV A Vmax 0.40 (0.4-1.3 m/s) LV E/e LAT4.05 (<14)MV E/A Ratio 1.03 MV E/E' medial 5.89 MV E/E' lateral4.07 Aortic Valve LVOT Area2.87 cm2AoV Area Vmax2.10 cm2 LVOT Vmax 0.99 m/sAoV Area/ BSA (Vmax)1.23 cm2/m2 LVOT Mean Eliseo.0.63 m/sAVA Mean Eliseo.1.88 cm2 LVOT Peak Grad 4.0 mmHgAVA Mean Eliseo. Index1.10 cm2/m2 LVOT Mean Grad 1.9 mmHgAR DT 3757 msec LVOT VTI0.195 mAR PHT 1089 msec LVOT Diam s 1.90 cm AoV Vmax1.36 m/s Velocity Ratio 0.72 AoV Mean Eliseo.0.97 m/s AoV Peak Grad7.4 mmHg LVOT SV 55.84 mL AoV Mean Grad4.2 mmHg AoV VTI0.269 m AoV Area VTI2.08 cm2 AoV Area/ BSA (VTI)1.21 cm/m2 Mitral Valve MV DT 298 (160-240 msec) MV PHT87 msec MV Area PHT 2.54 cm2 Pulmonary Valve PV Vmax 0.76 (0.5-1.5 m/s)RVOT Peak Gr.1.30 mmHg PV Peak Grad 2.3 mmHgRVOT Mean Gr.0.65 mmHg PV Mean Grad 1.3 mmHgRVOT VTI0.122 m PV VTI 0.169 mRVOT Vmax 0.57 m/s Tricuspid Valve TR Peak Grad 22.0 mmHgTR Vmax 2.35 m/s Ordered By: Charley Curtis CC: Dictated By: Susi Stapleton M.D. 05/09/20 1112 <Electronically signed by Susi Stapleton M.D. in [place]> 05/09/20 1138 Transcribed By: Susi Stapleton MD This is privileged, confidential information intended only for the provider named. Any use or distribution by any person other than this provider is strictly prohibited. If you receive this report in error, please notify us immediately at [phone] and return the original report to us at the address above. Thank-you. Anesthesia Assessment and Plan Anesthesia History Personal History: No History of Anesthesia Complications Family History: No Family History of Anesthesia Complications Exercise Tolerance Exercise Tolerance: Metabolic Equivalents>4 Pertinent Negatives Pertinent Negatives: No Symptoms of GERD Cardiac & Pulmonary Exam Cardiac Exam: Normal S1/S2 Heart Sounds Pulmonary Exam: Clear Bilateral Breath Sounds Implantable Cardiac Device Does patient have a Pacemaker or an ICD?: No Airway Exam Known Difficult Airway: No Mallampati Class: 2 Mouth Opening: Normal (> 3cm) Thyromental Distance: Greater than 3 cm Neck Range of Motion: Full ROM Neck Circumference: Normal Teeth Condition: Normal Dentition Tooth Numbering:  1. Capped ASA Classification ASA Score: ASA 2 Emergency Case?: No NPO Status NPO Status: NPO Clears >2 hours, Solids >8 hours Anesthesia Plan Resuscitation Status: Full Code Anesthesia Technique: General Anesthesia Airway Planned: Natural Airway Monitors Used: Standard Monitors
--- NOTE | 2025-07-04 07:36 | W.PM.DSUDISC ---
Date of service: 07/04/25 Discharge Plan Disposition Patient Disposition: Home Condition: Stable Discharge Details Attending Provider: Parvin Sprague Primary Care Provider: Charley Curtis Home Meds and New Rx's Prescriptions: Continued losartan 50 mg tablet 50 mg PO DAILY levothyroxine 75 MCG tablet 75 mcg PO DAILY ferrous sulfate [Iron (ferrous sulfate)] 325 MG tablet 325 mg PO DAILY iron-vitamin B complex Tablet 1 tab PO DAILY Rx Instructions: tablet three times a week famotidine [Pepcid] 20 mg tablet 20 mg PO DAILY Patient Comments: Pt reports PRN Rx Instructions: 1 twice a day breakfast and dinner omeprazole 20 mg capsule,delayed release(DR/EC) 20 mg PO DAILY Discontinued bisacodyl [Dulcolax (bisacodyl)] 5 mg tablet,delayed release (DR/EC) 5 mg PO ONCE Qty: 4 0RF Rx Instructions: Take per colonoscopy instructions provided by ordering providers office polyethylene glycol 3350 17 gram/dose powder 17 g PO ONCE Qty: 238 0RF Rx Instructions: Take per colonoscopy instructions provided by ordering providers office Discharge Instructions Additional Instructions: Guidelines for enhanced (more often) screening for family history of colon polyps are mixed. We are choosing to follow guidelines recommending enhanced screening for family history of tubulovillous adenoma in your father, and cancer in second degree relatives because it is the safest approach to your care. Your next colonoscopy will be due in 5 years due to family history. Diverticulosis of the sigmoid colon noted, no diverticulitis (infection) present. Take a daily fiber supplement and eat a high fiber diet to prevent problems and progression of diverticulosis. Activity:: Activity as Tolerated Diet:: As Tolerated Discharge Orders Discharge Orders: Discharge Order (Routine); Ordered 07/04/25 Ordered By: Parvin Sprague DS: Diagnosis Discharge Diagnosis (1) Encounter for colonoscopy in patient with family history of colon polyps: Status: Acute (2) Diverticulosis of sigmoid colon: Status: Acute
[2025-07-04 07:37] VITALS: BMI 22.1
[2025-07-04 08:05] VITALS: BP 117/71; PULSE 58; RESP 13; TEMP 36; O2SAT 98
--- NOTE | 2025-07-04 08:05 | W.COLOREPORT ---
Date of service: 07/04/25 Time of Service: 08:05 Colonoscopy Report Date of procedure: 07/04/25 Pre-op diagnosis general: Screening for colorectal cancer, family history of tubulovillous adenoma Post-op diagnosis procedure note: same (diverticulosis of sigmoid colon) Procedure: Colonoscopy Surgeon: Parvin Sprague Anesthesia Type: General:No Airway Estimated blood loss (mL): 0 Pathology: none sent Complications: None Indications: enhanced screening for colorectal cancer Prep: Miralax/Dulcolax (excellent) Procedure Description: Informed consent was obtained and the patient was taken to the procedure area. The patient was placed in left lateral decubitus position on the procedure table. Timeout was performed. Anesthesia was induced. A lubricated colonoscope was inserted through the anus and passed to the cecum. The cecum was identified by the ileocecal valve and the appendiceal orifice. The scope was then slowly withdrawn and the colonic and rectal mucosa examined. There are no colon or rectal mass lesions, polyps, AVMs. There is no inflammatory change. Sigmoid diverticulosis (moderate in degree) was seen. The scope was retroflexed in the anorectal junction examined. Uncomplicated internal hemorrhoids present. Assessment and plan: Screening for colorectal cancer Family history of tubulovillous adenoma in father Normal colonoscopy. Next screening colonoscopy will be due in 5 years due to family history. Following enhanced screening pathway due to high risk polyp in father. Fiber supplement recommended for diverticulosis.
--- NOTE | 2025-07-04 08:22 | W.ANESPOSTOP ---
Postoperative Evaluation Date, Time and Location Date Performed: 07/04/25 Time Performed: 08:22 Patient Location: Day Surgery Unit Vital Signs Most Recent Imported Vital Signs: Most Recent Vital Signs Temp Pulse Resp BP Pulse Ox 36 C L 58 L 13 117/71 98 07/04/25 08:05 07/04/25 08:05 07/04/25 08:05 07/04/25 08:05 07/04/25 08:05 Pain Score Most Recent Pain Score: Most Recent Pain Score Pain Level 0 07/04/25 06:20 Assessment Mental Status: Awake (Alert & Oriented to Patient Baseline) Airway and Respiratory Function: Patent airway with normal (patient baseline) respiratory exam Cardiovascular Function: Hemodynamically Stable Hydration Status: Adequately Hydrated Nausea & Vomiting: No Nausea or Vomiting Pain: Pt. Denies Any Pain Peripheral Nerve Block: Patient did not receive a nerve block
[2025-07-04 08:25] VITALS: BP 121/79; PULSE 55; RESP 15; TEMP 36.1; O2SAT 98
== END 2025-07-04 08:35 | disposition home or self-care (01) ==
PROVIDERS: PCP Family Medicine; Visit Provider Surgery
PROC: 0DJD8ZZ Inspection of Lower Intestinal Tract, Via Natural or Artificial Opening Endoscopic (ICD-10-PCS; CPT 45378; principal; 2025-07-04 07:30)
DX: Z12.11 Encounter for screening for malignant neoplasm of colon (principal); Z83.719 Family history of colon polyps, unspecified; K57.30 Diverticulosis of large intestine without perforation or abscess without bleeding; K21.9 Gastro-esophageal reflux disease without esophagitis
CPT/HCPCS: G0105; J2704